=== PATIENT | male | born 1955 | race Hispanic/Latino ===

== ENCOUNTER → 2017-11-21 | Outpatient (CLI) | payer OTHER ==
[~2017-11-21] MED LIST: ALEVE220 M1 PO; LOVASTATIN40 MG PO; MELOXICAM15 MG PO; SEPTRA DS PO
--- NOTE | 2017-11-21 18:44 | Diagnostic Imaging Report ---
Bone Scan, delayed phase INDICATION: Prostate cancer; elevated PSA; staging evaluation COMPARISON: None REPORT: Approximately 3 hours following intravenous administration of 26 mCi of Tc-99m MDP, delayed total body images in the anterior and posterior projections and selected spot images were obtained. Focal increased tracer is seen in L5/S1 on the right and in the superior aspect of the right SI joint. Otherwise, distribution of tracer activity is unremarkable throughout the skeletal system. No abnormal accumulation of tracer is seen in the soft tissues or urinary tract. IMPRESSION: 1. Concern for metastasis in the right ilium at the superior aspect of the SI joint. Correlate with CT scan. 2. Osteoblastic process in L5/S1 on the right is likely degenerative. Signed by: Dr. Angelica Chao M.D. on 11/21/2017 6:40 PM
== END ==
LOC: NM 12:23
PROVIDERS: ATTEND Urology
DX: C61 Malignant neoplasm of prostate (principal)
CPT/HCPCS: 78306; A9503